=== PATIENT | male | born 1960 | race Caucasian/White ===

== ENCOUNTER 2017-11-23 18:05 | Inpatient (IN) ==
[2017-11-23] MEDS ORDERED: MORPHINE SULFATE INJ 4 MG IVP ONE (18:51)
[2017-11-23] MEDS ORDERED: PHENERGAN INJ 25 MG IV ONE (18:51)
--- NOTE | 2017-11-23 18:57 | DR.GENAD ---
HPI - PCP Primary Care Physician: NFD - HPI Comment HPI Comment: PAIN RADIATES TO RIFHT SHOULDER. PAIN IS 5/10 AND ASSOCIATED WITH FEVER AND WEAKNESS. NO DYSURIA. NAUSEATED BUT NO VOMITING. PATIENT IS WORSE TODAY. HE FELL AND RT KNEE AND ANKLE ARE HURTING. URINE OUTPUT IS DECRESS AND STOOL IS DARK. NO CHEST PAIN. HEADACHE NOTED TODAY. NO HEAD CONGESTION. - Complaint/Symptoms Chief Complaint Doctors Comments: ABDOMINA PAIN AND LEFT FLANK PAIN TIMES ONE DAY. Chief Complaint:: PATIENT STATED THAT HE STARTED HAVING ABD. PAIN THAT RADIATES TO THE RIGHT SHOULDER AND LEFT LOWER BACK. PATIENT ALSO STATED THAT HE IS HAVING WEAKNESS AND FELL LAST NIGHT AND NOW C/O RIGHT KNEE AND ANKLE PAIN. HE STATED THAT HE BLACKED OUT BUT DENIES HITTING HIS HEAD. HE ALSO STATED THAT HIS URINE WAS DARK AND HIS STOOL WAS BLACK AND HE ALSO THINKS HE HAS BEEN RUNNING A FEVER. THE GIRLFRIEND STATED THAT HE HAS LOST WEIGHT OVER THE LAST COUPLE OF MONTHS. - Nurses notes reviewed Nurses Notes Review: Yes - Source History Provided: Patient - Mode of Arrival Mode of Arrival: Ambulatory - Timing Onset of Chief Complaint: 11/22/17 Came on: Suddenly - Duration Duration: Constant Duration: Days - Severity Severity: Moderate PMH - PMH Past Medical History: Yes Past Medical History: Hypertension Past Surgical History: Yes Surgical History: Other Past Surgical History Comment: HERNIA REPAIR 2013 - Family History History of Family Medical Conditions: Yes Family Medical History: Diabetes Mellitus, Cancer - Social History Does patient currently use any type of tobacco product: Yes Have you used tobacco products in the last 12 months: Yes Type of Tobacco Use: Cigarettes Does any household member use tobacco: No Alcohol Use: None Do you use any recreational Drugs:: Yes Lives With: Significant Other Lives Where: Home - infectious screening In the last 2 months have you had wt loss of >10#?: NO Have you had fever, night sweats or hemotysis?: No Have you traveled outside the country in the last 6 months?: No Isolation: Standard ROS - Review of Systems Constitutional: Chills, Fever, Weakness, Fatigue, Loss of Appetite Eyes: No Symptoms Reported. negative: Eye Pain, Blurred Vision, Discharge, Photophobia, Diplopia ENTM: negative: Ear Pain, Nose Discharge, Nose Congestion, Throat Pain Respiratoy: Short of Breath. negative: Productive Cough, Non-Productive Cough, Wheezing, Hemoptysis Gastrointestinal/Abdominal: Abdominal Pain, Nausea Genitourinary: Other (LEFT FLANK PAIN). negative: Dysuria, Frequency, Hematuria Neurological: Headache, Weakness, Dizziness Musculoskeletal: Muscle Pain Integumentary: Dryness Hematologic/Lymphatic: No Symptoms Reported Endocrine: No Symptoms Reported All Other Systems: Reviewed and Negative PE - General Limitations: No Limitations General Appearance: Alert - Head Head Exam: Normal Inspection - Eyes Eye exam: Normal Appearance - ENT ENT Exam: Normal External Ear Exam External Ear Exam: Normal External Inspection TM/Canal Exam: Bilateral Normal Nose Exam: Normal Nose Exam Mouth Exam: Normal Inspection Throat Exam: Normal Inspection - Neck Neck Exam: Trachea Midline - Chest Chest Inspection: Symmetric Chest Wall Rise - Respiratory Respiratory Exam: Normal Lung Sounds Bilat Respiratory Exam: Bilateral Clear to Auscultation - Cardiovascular Cardiovascular Exam: Regular Rate, Normal Rhythm, Normal Heart Sounds - Abdominal Exam Abdominal Exam: Normal Bowel Sounds, Soft, Tenderness Abdominal Tenderness: Diffuse, Moderate - Extremities Extremities Exam: Normal Inspection - Back Back Exam: (L) CVA Tenderness - Neurologic Neurological Exam: Alert, Oriented X3, CN II-XII Intact. negative: Motor Sensory Deficit - Psychiatric Psychiatric Exam: Normal Affect, Normal Mood - Skin Skin Exam: Normal Color - Vital Signs Vitals: Temperature 101.2 F Pulse Rate [Apical] 92 Pulse Rate 96 Respiratory Rate 21 Blood Pressure [Left Arm] 176/81 Blood Pressure 147/75 O2 Sat by Pulse Oximetry 98 MDM - Differential Diagnosis Differential Diagnosis: UTI, PYELONEPHRTIS, KIDNEY STONE, BOWEL OBSTRUCTION, DEHYDRATION, DIVERTICU Course - Treatment Treatment: SEE ORDERS. - Consultation Consultation Comments: DISCUSS PATIENT WITH DR. LILLY. HE WILL ADMIT PATIENT. - Education/Counseling Education/Counseling: Patient, Education Educated On: Treatment ROR - Labs Reviewed Laboratory Results Reviewed?: Yes Result Diagrams: 11/25/17 05:35 11/25/17 05:35 - XRAY XRAY Interpreted by: Radiologist XRAY Findings: REPORT DISCUSS WITH PATIENT. - Labs Reviewed Laboratory: WBC 16.4 X10^3/uL (3.6-10.0) H 11/23/17 20:00 RBC 3.35 X10^6/uL (4.7-6.0) L 11/23/17 20:00 Hgb 9.0 g/dL (13.5-18.0) L 11/23/17 20:00 Hct 27.3 % (42.0-54.0) L 11/23/17 20:00 MCV 81.3 fL (80.0-100.0) 11/23/17 20:00 MCH 26.7 pg (27.0-34.0) L 11/23/17 20:00 MCHC 32.9 g/dL (33.0-35.0) L 11/23/17 20:00 RDW 15.4 % (11.6-16.5) 11/23/17 20:00 Plt Count 368 X10^3/uL (150.0-450.0) 11/23/17 20:00 MPV 8.5 fL (7.4-11.0) 11/23/17 20:00 Neut % (Auto) 73.1 % (42.0-75.0) 11/23/17 20:00 Lymph % (Auto) 19.6 % (21.0-51.0) L 11/23/17 20:00 [place] % (Auto) 5.8 % (0.0-13.0) 11/23/17 20:00 Eos % (Auto) 0.9 % (0.9-2.9) 11/23/17 20:00 Baso % (Auto) 0.6 % (0.2-1.0) 11/23/17 20:00 Neut # (Auto) 12.0 x10^3/uL (2.2-4.8) H 11/23/17 20:00 Lymph # (Auto) 3.2 X10^3/uL (1.3-2.9) H 11/23/17 20:00 [place] # (Auto) 0.9 x10^3/uL (0.3-0.8) H 11/23/17 20:00 Eos # (Auto) 0.1 x10^3/uL (0.0-0.2) 11/23/17 20:00 Baso # (Auto) 0.1 X10^3/uL (0.0-0.1) 11/23/17 20:00 Absolute Nucleated RBC 0.0 /100WBC 11/23/17 20:00 Sodium 139 mmol/L (136-145) 11/23/17 20:00 Corrected Sodium TNP 11/23/17 20:00 Potassium 3.5 mmol/L (3.5-5.1) 11/23/17 20:00 Chloride 102 mmol/L (98-107) 11/23/17 20:00 Carbon Dioxide 25.6 mmol/L (21-32) 11/23/17 20:00 BUN 25 mg/dL (7-18) H 11/23/17 20:00 Creatinine 0.82 mg/dL (0.70-1.30) 11/23/17 20:00 Est GFR (MDRD) Af Amer > 60 (>60) 11/23/17 20:00 Est GFR (MDRD) Non-Af > 60 (>60) 11/23/17 20:00 Glucose 104 mg/dL (65-99) H 11/23/17 20:00 Calcium 7.7 mg/dL (8.5-10.1) L 11/23/17 20:00 Corrected Calcium 8.3 mg/dL (8.5-10.1) L 11/23/17 20:00 Total Bilirubin 0.10 mg/dL (0.2-1.0) L 11/23/17 20:00 AST 14 Units/L (15-37) L 11/23/17 20:00 ALT 17 Units/L (12-78) 11/23/17 20:00 Alkaline Phosphatase 67 Units/L (46-116) 11/23/17 20:00 Total Protein 7.1 g/dL (6.4-8.2) 11/23/17 20:00 Albumin 3.2 g/dL (3.4-5.0) L 11/23/17 20:00 Globulin 3.9 g/dL (2.5-4.5) 11/23/17 20:00 Albumin/Globulin Ratio 0.8 Ratio (1.1-2.1) L 11/23/17 20:00 Specimen Type Clean catch urine 11/23/17 19:53 Urine Color Yellow (YELLOW) 11/23/17 19:53 Urine Appearance Clear (CLEAR) 11/23/17 19:53 Urine pH 5.0 (5.0 - 8.0) 11/23/17 19:53 Ur Specific [place] 1.010 (1.000-1.030) 11/23/17 19:53 Urine Protein Negative (NEGATIVE) 11/23/17 19:53 Urine Glucose (UA) Negative (NEGATIVE) 11/23/17 19:53 Urine Ketones Negative (NEGATIVE) 11/23/17 19:53 Urine Occult Blood Negative (NEGATIVE) 11/23/17 19:53 Urine Nitrite Negative (NEGATIVE) 11/23/17 19:53 Urine Bilirubin Negative (NEGATIVE) 11/23/17 19:53 Urine Urobilinogen Normal (NORMAL) 11/23/17 19:53 Ur Leukocyte Esterase Negative (NEGATIVE) 11/23/17 19:53 - Diagnosis Discharge Problem: Diverticulitis, Dehydration Lower back pain Qualifiers: Chronicity: acute Back pain laterality: left Sciatica presence: without sciatica Qualified Code(s): M54.5 - Low back pain GI bleeding Qualifiers: GI bleed type/associated pathology: melena Qualified Code(s): K92.1 - Melena - Discharge Plan Disposition: 09 ADMITTED INPATIENT Condition: Stable
[2017-11-23] MEDS ORDERED: MORPHINE SULFATE INJ 4 MG ONE (19:07)
[2017-11-23] MEDS ORDERED: PHENERGAN INJ 25 MG ONE (19:07)
[2017-11-23] MEDS ORDERED: NS 1000 ML 1,000 ML ONE (19:09)
[2017-11-23] MEDS ORDERED: NS 1000 ML 1,000 ML IV ONE (19:21)
[2017-11-23 20:07] LABS: BILIRUBIN,URINE NEGATIVE (NEGATIVE); BLOOD/HEMOGLOBIN,URINE NEGATIVE (NEGATIVE); GLUCOSE, URINE NEGATIVE (NEGATIVE); KETONES,URINE NEGATIVE (NEGATIVE); LEUKOCYTE ESTERASE ,URINE NEGATIVE (NEGATIVE); NITRITES,URINE NEGATIVE (NEGATIVE); PROTEIN,URINE NEGATIVE (NEGATIVE); UROBILINOGEN,URINE NORMAL (NORMAL)
[2017-11-23 20:12] LABS: APPEARANCE,URINE CLEAR (CLEAR); COLOR,URINE YELLOW (YELLOW)
[2017-11-23 20:14] LABS: BASOPHILS # (AUTO) 0.1 X10^3/uL (0.0-0.1); BASOPHILS % (AUTO) 0.6 % (0.2-1.0); EOSINOPHILS # (AUTO) 0.1 x10^3/uL (0.0-0.2); EOSINOPHILS % (AUTO) 0.9 % (0.9-2.9); HEMATOCRIT 27.3 % (42.0-54.0); LYMPHOCYTES # (AUTO) 3.2 X10^3/uL (1.3-2.9); LYMPHOCYTES % (AUTO) 19.6 % (21.0-51.0); MEAN CORPUSCULAR HEMOGLOBIN 26.7 pg (27.0-34.0); MEAN CORPUSCULAR HGB CONC 32.9 g/dL (33.0-35.0); MEAN CORPUSCULAR VOLUME 81.3 fL (80.0-100.0); MEAN PLATELET VOLUME 8.5 fL (7.4-11.0); MONOCYTES # (AUTO) 0.9 x10^3/uL (0.3-0.8); MONOCYTES % (AUTO) 5.8 % (0.0-13.0); NEUTROPHILS % (AUTO) 73.1 % (42.0-75.0); PLATELET COUNT 368 X10^3/uL (150.0-450.0); RED BLOOD COUNT 3.35 X10^6/uL (4.7-6.0); RED CELL DISTRIBUTION WIDTH 15.4 % (11.6-16.5); WHITE BLOOD COUNT 16.4 X10^3/uL (3.6-10.0)
[2017-11-23 20:24] LABS: ALANINE AMINOTRANSFERASE 17 Units/L (12-78); ALBUMIN 3.2 g/dL (3.4-5.0); ALKALINE PHOSPHATASE 67 Units/L (46-116); ASPARTATE AMINO TRANSFERASE 14 Units/L (15-37); BLOOD UREA NITROGEN 25 mg/dL (7-18); CALCIUM 7.7 mg/dL (8.5-10.1); CARBON DIOXIDE 25.6 mmol/L (21-32); CHLORIDE 102 mmol/L (98-107); COR CA(FOR HYPOALB) 8.3 mg/dL (8.5-10.1); CREATININE 0.82 mg/dL (0.70-1.30); SODIUM 139 mmol/L (136-145); TOTAL PROTEIN 7.1 g/dL (6.4-8.2); eGFR NON BLACK RACES > 60 (>60)
--- NOTE | 2017-11-23 20:35 | CT ---
CT head without contrast Indication: Weakness, syncope Comparison: None Technique: CT images of the head were obtained without contrast. Automatic exposure control was utili zed. Findings: There is age-appropriate generalized brain atrophy with concomitant ventricular and sulcal enlargement. Patchy areas of white matter hypoattenuation are most compatible with chronic microangio rosa. There is no evidence for acute bleed, mass effect, or abnormal extra-axial collection. No sign ificant skeletal abnormality. The visualized paranasal sinuses and mastoid air cells are grossly dez r. Impression: No acute intracranial abnormality. White matter change suggestive for chronic microangiopathy. Reported By:
--- NOTE | 2017-11-23 20:52 | CT ---
CT abdomen and pelvis without contrast Indication: Abdominal pain, weakness, dark stool Comparison: None Technique: CT images of the abdomen and pelvis were obtained without contrast. Automatic exposure con trol was utilized. Findings: There is marked discogenic degenerative disease at L3-4. Minimal lumbar levoscoliosis is no keith. No acute skeletal abnormality. The lung bases are grossly clear. Evaluation of the abdominal pelvic viscera is limited without contrast. There is irregular thickening of the distal stomach, with some adjacent fat stranding and shotty lymph nodes inferior to the dista l greater curvature. No discrete perigastric collection appreciated. Within the limitations of a nonc ontrast study, the liver, gallbladder, spleen, proximal stomach, duodenum, pancreas, adrenals, and ki dneys demonstrate no significant abnormality. There are rounded hypodense bilateral renal lesions elizabeth t cannot be definitively characterized, but are most suggestive for simple cysts. There is no nephrol ithiasis or hydronephrosis. There is chronic appearing rectus abdominus dehiscence with small to moderate broad-based midline tulio tral hernia containing otherwise normal appearing bowel loops and fat. A few smaller fat containing s upraumbilical ventral hernia defects are also noted. There is irregular thickening of the sigmoid colon (for example axial images 67-72 and coronal images 25-37). A few scattered colonic diverticula are noted. There is no marked pericolonic stranding or c ollection this region. Previous partial right hemicolectomy is noted with ileocolic anastomosis in th e right upper quadrant. No significant small bowel dilatation is observed. The urinary bladder, prost ate, and rectum are unremarkable. No free fluid or bulky adenopathy. There is aortoiliac atherosclero sis, without aneurysm. Impression: 1. Thickening and adjacent stranding of the distal stomach is most suggestive for ulcer disease, neop lasm, or focal gastritis. A few shotty adjacent lymph nodes may be reactive, although metastatic dise ase is possible if this does represent neoplasm. Consider endoscopy for further evaluation. 2. Irregular thickening of the sigmoid concerning for neoplasm. Colitis or diverticulitis is possible , but neoplasm must be excluded. Recommend colonoscopy, if indicated. 3. Additional findings as above. Reported By:
--- NOTE | 2017-11-23 21:00 | RAD ---
History: Abdominal pain, fever, fell, weakness. Study: Right ankle three views Findings: No acute cortical disruption or dislocation can be identified. The ankle mortise remains well aligne d. No significant soft tissue swelling or injury can be seen. The visualized portions of the talus are unremarkable. Calcaneal spurs are noted. IMPRESSION: 1. Negative exam. Reported By:
--- NOTE | 2017-11-23 21:06 | RAD ---
HISTORY: Abdominal pain, fever, fell, weakness. Study: Right knee three views Comparison: None. Findings: There is no evidence for acute cortical disruption or dislocation. The medial and lateral tibiofemor al compartments are unremarkable without significant joint space narrowing. The lateral radiograph f ails to demonstrate significant joint effusion. Patellofemoral compartment is normal in appearance. IMPRESSION: 1. Negative exam. Reported By:
[2017-11-23] MEDS ORDERED: CIPRO IV 400 MG PREMIX* 400 MG/200 ML IV.SOLN. IV ONE ×2 (22:02→22:04)
[2017-11-23] MEDS ORDERED: FLAGYL IV PREMIX 500 MG BAG 500 MG/100 ML BAG IV ONE ×2 (22:11→23:07)
[2017-11-23] MEDS ORDERED: MORPHINE SULFATE INJ 4 MG IVP PRN (22:22)
[2017-11-23] MEDS ORDERED: ZOFRAN INJ 4 MG VIAL IVP PRN (22:22)
[2017-11-23] MEDS ORDERED: TYLENOL 325 MG TAB PO PRN (22:28)
[2017-11-23] MEDS ORDERED: PEPCID 20 MG IV PREMIX* 20 MG/50 ML BAG IV PRN (22:28)
[2017-11-23] MEDS: TORADOL 30 MG VIAL IVP PRN (23:55)
[2017-11-23 23:57] VITALS: BMI 31.3
[2017-11-24] MEDS: NS 1000 ML 1,000 ML IV SCH ×3 (00:50→17:36)
[2017-11-24] MEDS: FLAGYL IV PREMIX 500 MG BAG 500 MG/100 ML BAG IV SCH ×4 (03:11→21:13)
[2017-11-24] MEDS: TORADOL 30 MG VIAL IVP PRN ×2 (05:44→19:44)
[2017-11-24 06:07] LABS: ALBUMIN 2.6 g/dL (3.4-5.0); ALKALINE PHOSPHATASE 53 Units/L (46-116); ASPARTATE AMINO TRANSFERASE 11 Units/L (15-37); BLOOD UREA NITROGEN 17 mg/dL (7-18); CALCIUM 7.2 mg/dL (8.5-10.1); CARBON DIOXIDE 28.2 mmol/L (21-32); CHLORIDE 107 mmol/L (98-107); COR CA(FOR HYPOALB) 8.3 mg/dL (8.5-10.1); COR NA(FOR HYPERGLY) 141 mmol/L (136-145); CREATININE 0.75 mg/dL (0.70-1.30); SODIUM 141 mmol/L (136-145); TOTAL PROTEIN 5.7 g/dL (6.4-8.2); eGFR NON BLACK RACES > 60 (>60)
[2017-11-24 06:16] LABS: ALANINE AMINOTRANSFERASE 13 Units/L (12-78)
[2017-11-24 06:25] LABS: BASOPHILS # (AUTO) 0.1 X10^3/uL (0.0-0.1); BASOPHILS % (AUTO) 0.6 % (0.2-1.0); EOSINOPHILS # (AUTO) 0.2 x10^3/uL (0.0-0.2); EOSINOPHILS % (AUTO) 1.8 % (0.9-2.9); HEMATOCRIT 21.9 % (42.0-54.0); HEMOGLOBIN 7.2 g/dL (13.5-18.0); LYMPHOCYTES # (AUTO) 2.6 X10^3/uL (1.3-2.9); LYMPHOCYTES % (AUTO) 23.3 % (21.0-51.0); MEAN CORPUSCULAR HEMOGLOBIN 27.1 pg (27.0-34.0); MEAN CORPUSCULAR HGB CONC 33.1 g/dL (33.0-35.0); MEAN PLATELET VOLUME 8.3 fL (7.4-11.0); MONOCYTES # (AUTO) 0.8 x10^3/uL (0.3-0.8); NEUTROPHILS # (AUTO) 7.4 x10^3/uL (2.2-4.8); NEUTROPHILS % (AUTO) 67.3 % (42.0-75.0); PLATELET COUNT 276 X10^3/uL (150.0-450.0); RED BLOOD COUNT 2.67 X10^6/uL (4.7-6.0); RED CELL DISTRIBUTION WIDTH 15.3 % (11.6-16.5); WHITE BLOOD COUNT 10.9 X10^3/uL (3.6-10.0)
[2017-11-24 07:06] LABS: HYPOCHROMASIA SLIGHT; PLATELET MORPHOLOGY COMMENT NORMAL (NORMAL)
[2017-11-24] MEDS ORDERED: NICOTINE PATCH TD SCH (09:00)
[2017-11-24] MEDS ORDERED: CHECK PATCH XX SCH ×2 (09:00→21:00)
[2017-11-24] MEDS ORDERED: LR 1000 ML IV 1,000 ML IV ONE (09:00)
[2017-11-24] MEDS ORDERED: CIPRO IV 400 MG PREMIX* 400 MG/200 ML IV.SOLN. IV SCH (09:00)
[2017-11-24] MEDS ORDERED: DIPRIVAN VIAL 20 ML ONE (09:08)
--- NOTE | 2017-11-24 09:38 | OR.GENERIC ---
Post-Op Note Generic - Post-Op Note Operative Report: EGD was done , findings : Large duodenal ulcer with mild bleeding .. no obstruction now 2- small hiatal hernia . will keep on Protonix 40 BID and Carafate one Gm TID and at bed time . will follow as an OP
[2017-11-24] MEDS ORDERED: ZOFRAN INJ 4 MG VIAL IVP PRN (11:15)
[2017-11-24] MEDS ORDERED: TYLENOL 325 MG TAB PO PRN (11:15)
[2017-11-24] MEDS: PROTONIX INJ 40 MG VIAL IVP SCH ×2 (11:25→21:12)
[2017-11-24] MEDS: CARAFATE PO SCH ×3 (11:25→21:12)
[2017-11-24] MEDS: MORPHINE SULFATE INJ 4 MG IVP PRN (16:30)
[2017-11-24] MEDS: CIPRO IV 400 MG PREMIX* 400 MG/200 ML IV.SOLN. IV SCH (21:11)
[2017-11-25] MEDS: MORPHINE SULFATE INJ 4 MG IVP PRN
[2017-11-25] MEDS: FLAGYL IV PREMIX 500 MG BAG 500 MG/100 ML BAG IV SCH ×3 (03:00→15:50)
[2017-11-25] MEDS: TORADOL 30 MG VIAL IVP PRN ×2 (04:19→17:37)
[2017-11-25] MEDS: CARAFATE PO SCH ×2 (05:26→13:46)
[2017-11-25] MEDS: NS 1000 ML 1,000 ML IV SCH ×3 (05:26→15:50)
[2017-11-25 06:17] LABS: BASOPHILS # (AUTO) 0.1 X10^3/uL (0.0-0.1); BASOPHILS % (AUTO) 0.4 % (0.2-1.0); EOSINOPHILS # (AUTO) 0.2 x10^3/uL (0.0-0.2); EOSINOPHILS % (AUTO) 1.8 % (0.9-2.9); HEMATOCRIT 21.3 % (42.0-54.0); LYMPHOCYTES # (AUTO) 1.6 X10^3/uL (1.3-2.9); LYMPHOCYTES % (AUTO) 12.4 % (21.0-51.0); MEAN CORPUSCULAR HGB CONC 33.3 g/dL (33.0-35.0); MEAN PLATELET VOLUME 8.3 fL (7.4-11.0); MONOCYTES # (AUTO) 0.7 x10^3/uL (0.3-0.8); MONOCYTES % (AUTO) 5.5 % (0.0-13.0); NEUTROPHILS # (AUTO) 10.6 x10^3/uL (2.2-4.8); NEUTROPHILS % (AUTO) 79.9 % (42.0-75.0); PLATELET COUNT 260 X10^3/uL (150.0-450.0); RED BLOOD COUNT 2.63 X10^6/uL (4.7-6.0); RED CELL DISTRIBUTION WIDTH 15.7 % (11.6-16.5); WHITE BLOOD COUNT 13.3 X10^3/uL (3.6-10.0)
[2017-11-25 06:28] LABS: HEMOGLOBIN 7.1 g/dL (13.5-18.0)
[2017-11-25 06:50] LABS: ALANINE AMINOTRANSFERASE 17 Units/L (12-78); ALBUMIN 2.6 g/dL (3.4-5.0); ALKALINE PHOSPHATASE 61 Units/L (46-116); ASPARTATE AMINO TRANSFERASE 16 Units/L (15-37); BLOOD UREA NITROGEN 8 mg/dL (7-18); CALCIUM 7.4 mg/dL (8.5-10.1); CARBON DIOXIDE 24.7 mmol/L (21-32); CHLORIDE 108 mmol/L (98-107); COR CA(FOR HYPOALB) 8.5 mg/dL (8.5-10.1); CREATININE 0.84 mg/dL (0.70-1.30); SODIUM 142 mmol/L (136-145); TOTAL PROTEIN 5.9 g/dL (6.4-8.2); eGFR NON BLACK RACES > 60 (>60)
[2017-11-25] MEDS: CIPRO IV 400 MG PREMIX* 400 MG/200 ML IV.SOLN. IV SCH (08:30)
[2017-11-25] MEDS: PROTONIX INJ 40 MG VIAL IVP SCH (08:31)
[2017-11-25] MEDS ORDERED: NICOTINE PATCH TD SCH (09:00)
[2017-11-25] MEDS: NS 500 ML IV 500 ML IV SCH (15:30)
[2017-11-25] MEDS ORDERED: NS 500 ML IV 500 ML IV ONE (15:32)
[2017-11-25 16:21] VITALS: BP 118/80
== END 2017-11-25 19:37 | disposition home or self-care (01) | DRG 391 ==
LOC: ER 18:05 → ICU 22:05
PROVIDERS: ADMIT Obstetrics & Gynecology Obstetrics; ATTEND Obstetrics & Gynecology Obstetrics
DX: K57.92 Diverticulitis of intestine, part unspecified, without perforation or abscess without bleeding; I10 Essential (primary) hypertension; M25.511 Pain in right shoulder; D64.89 Other specified anemias; Z74.1 Need for assistance with personal care; M54.5 Low back pain; Z91.81 History of falling; R10.84 Generalized abdominal pain; M62.81 Muscle weakness (generalized); R55 Syncope and collapse; R19.5 Other fecal abnormalities; R93.3 Abnormal findings on diagnostic imaging of other parts of digestive tract; M79.661 Pain in right lower leg; K44.9 Diaphragmatic hernia without obstruction or gangrene; K26.4 Chronic or unspecified duodenal ulcer with hemorrhage; R53.83 Other fatigue
CPT/HCPCS: 36415; 36430; 70450; 73564; 73610; 74176; 80053; 81003; 82270; 85025; 86850; 86900; 86901; 86922; 87040; 96365; 96374; 96375; 97163; 97165; 99282; 99284; A4222; C9113; P9016; S0030; A4217; J0744; J1885; J2270; J2550; J2704; J3490; J7030; J7040; J7120